=== PATIENT | female | born 2000 | race Caucasian/White ===

== ENCOUNTER 2021-09-07 11:29 | Emergency (ER) | payer BC ==
[~2021-09-07] VITALS: Ht 154.9 cm; Wt 60.0 kg
[2021-09-07 11:54] VITALS: BP 115/66; TEMP 97.9
[2021-09-07] MEDS ORDERED: CLEOCIN HCL300 MG PO (12:31)
[2021-09-07] MEDS ORDERED: LIDOCAINE HCL100 M1 MM (12:32)
[2021-09-07 14:15] VITALS: PULSE 90
== END 2021-09-07 14:15 | disposition home or self-care (01) ==
LOC: COL.ER 11:29
DX: R05.9 Cough, unspecified (principal)
CPT/HCPCS: J1100